=== PATIENT | female | born 1990 | race Caucasian/White ===

== ENCOUNTER 2020-08-06 19:10 | Inpatient (IN) | payer OTHER ==
[2020-08-06 19:32] VITALS: BMI 31.8
[2020-08-06] MEDS ORDERED: hydrALAZINE 20 MG/ML VIAL SLOW IVP PRN (22:17)
[2020-08-06] MEDS ORDERED: Zolpidem Tartrate 5 MG TAB PO PRN (22:17)
[2020-08-07 07:11] LABS: Hemoglobin 10.6 g/dL (12.0-15.5); Mean Corpuscular HGB CONC 31.4 g/dL (32.0-36.0); Mean Corpuscular Hemoglobin 28.1 pg (27.0-33.0); Mean Corpuscular Volume 89.7 fl (81.6-98.3); Platelet Count 243 10x3/uL (150-450); RBC Distribution Width 15.2 % (11.5-14.5); Red Blood Cell (RBC) Count 3.77 10x6/uL (3.90-5.03); White Blood Cell (WBC) Count 12.3 10x3/uL (3.5-10.5)
[2020-08-07 08:05] LABS: Syphilis Antibody Nonreactive (Nonreactive); Syphilis Antibody Index 0.03 S/CO (<1.00 Non-Reactive)
[2020-08-07 08:06] LABS: Hep B Surf Ag Non-Reactive S/CO (NonReactive)
[2020-08-07] MEDS ORDERED: Ondansetron PF 4 MG/2 ML Vial ONE (10:34)
[2020-08-07] MEDS ORDERED: NS w/ Oxytocin 30 units 500 ML ONE (12:07)
[2020-08-07] MEDS ORDERED: hydrALAZINE 20 MG/ML VIAL SLOW IVP PRN ×3 (13:14→18:16)
[2020-08-07] MEDS ORDERED: Promethazine HCl 25 MG/ML VIAL IM PRN ×2 (13:14→14:00)
[2020-08-07] MEDS ORDERED: Acetaminophen 500 MG TAB PO PRN (13:14)
[2020-08-07] MEDS ORDERED: Ondansetron PF 4 MG/2 ML Vial IVP PRN ×3 (13:14→18:16)
[2020-08-07] MEDS ORDERED: Misoprostol 200 MCG TAB PR PRN (13:16)
[2020-08-07] MEDS ORDERED: Lidocaine 1% (PF) 30 ML VIAL SC PRN (13:16)
[2020-08-07] MEDS ORDERED: NS / Oxytocin 40 units/1000ml 1,000 ML IV PRN (13:16)
[2020-08-07] MEDS ORDERED: Ibuprofen 800 MG TAB PO PRN (13:16)
[2020-08-07] MEDS ORDERED: HYDROcodone/Acetaminophen 5/325 mg Tablet PO PRN ×4 (13:16→18:16)
[2020-08-07] MEDS ORDERED: Fentanyl 4 mcg/Bup 0.1% Cadd 100 ML ONE (13:32)
[2020-08-07] MEDS ORDERED: Naloxone HCl 0.4 mg/ml Vial IVP PRN ×2 (14:00)
[2020-08-07] MEDS ORDERED: Communication Order-Pharmacy FS SCH (14:00)
[2020-08-07] MEDS ORDERED: ePHEDrine 50 MG/ML VIAL SLOW IVP PRN (14:00)
[2020-08-07] MEDS ORDERED: Acetaminophen 325 MG TAB PO PRN ×2 (14:00→18:18)
[2020-08-07] MEDS ORDERED: Eucerin (Mineral Oil/Petrolatum,White) 30 gm Jar TOP PRN (14:00)
[2020-08-07] MEDS ORDERED: Fentanyl 4 mcg/Bupivacaine 0.1% Cassette 100 ML EPIDURAL SCH (14:00)
[2020-08-07] MEDS ORDERED: diphenhydrAMINE 50 MG/ML VIAL IVP PRN (14:00)
[2020-08-07] MEDS ORDERED: Lactated Ringer's 500 ML IV PRN (14:00)
[2020-08-07] MEDS ORDERED: Cyclobenzaprine 10 MG TAB PO SCH (14:45)
[2020-08-07] MEDS ORDERED: Zolpidem Tartrate 5 MG TAB PO PRN (18:16)
[2020-08-07] MEDS ORDERED: Preparation H Ointment 28 GM TUBE PR PRN (18:16)
[2020-08-07] MEDS ORDERED: Milk Of Magnesia 30 ML UDCUP PO PRN (18:16)
[2020-08-07] MEDS ORDERED: Adacel (T-DAP) 0.5 ML SYRINGE IM ONE (18:16)
[2020-08-07] MEDS ORDERED: Misoprostol 200 MCG TAB VAG PRN (18:16)
[2020-08-07] MEDS ORDERED: Benzocaine-Menthol 82.5 ML CAN TOP PRN (18:16)
[2020-08-07] MEDS ORDERED: diphenhydrAMINE 25 MG CAP PO PRN (18:16)
[2020-08-07] MEDS ORDERED: Lanolin Ointment 7 GM TUBE TOP PRN (18:16)
[2020-08-07] MEDS ORDERED: Bisacodyl 10 MG SUPP PR PRN (18:16)
[2020-08-07] MEDS ORDERED: Witch Hazel-Glycerin 1 EACH JAR TOP PRN (18:18)
[2020-08-07] MEDS ORDERED: NS w/ Oxytocin 30 units 500 ML IVPB SCH ×2 (19:00→19:15)
[2020-08-07] MEDS ORDERED: NS w/ Oxytocin 30 units 500 ML IVPB PRN (19:00)
[2020-08-07] MEDS: Ibuprofen 800 MG TAB PO SCH ×3 (19:10→23:09)
[2020-08-07] MEDS ORDERED: Boostrix 0.5 ML (Tdap) VIAL IM ONE (19:15)
[2020-08-07 20:47] LABS: SARS-CoV-2 PCR by NAA Not Detected (NotDetected)
[2020-08-07] MEDS: Docusate Calcium (SURFAK) 240 MG CAP PO SCH (23:17)
[2020-08-08] MEDS: Ibuprofen 800 MG TAB PO SCH ×3 (05:30→22:02)
[2020-08-08 05:40] LABS: Hemoglobin 10.1 g/dL (12.0-15.5); Mean Corpuscular HGB CONC 30.9 g/dL (32.0-36.0); Mean Corpuscular Hemoglobin 28.2 pg (27.0-33.0); Mean Corpuscular Volume 91.3 fl (81.6-98.3); Mean Platelet Volume 10.6 fl (7.4-10.4); Platelet Count 236 10x3/uL (150-450); RBC Distribution Width 15.2 % (11.5-14.5); Red Blood Cell (RBC) Count 3.58 10x6/uL (3.90-5.03); White Blood Cell (WBC) Count 12.3 10x3/uL (3.5-10.5)
[2020-08-08] MEDS: Ferrous Sulfate 325 MG TAB PO SCH ×2 (07:31→17:32)
[2020-08-08] MEDS: Docusate Calcium (SURFAK) 240 MG CAP PO SCH ×2 (09:16→22:02)
[2020-08-09] MEDS: Ibuprofen 800 MG TAB PO SCH ×2 (06:51→13:19)
[2020-08-09] MEDS: Ferrous Sulfate 325 MG TAB PO SCH (07:29)
[2020-08-09] MEDS: Docusate Calcium (SURFAK) 240 MG CAP PO SCH (08:49)
[2020-08-09 08:54] VITALS: BP 118/69; TEMP 98.3
== END 2020-08-09 14:31 | disposition home or self-care (01) | DRG 807 ==
LOC: CSHLD/OP 19:10 → EEVIPCON 08-07 09:04 → CSHLD 08-07 09:04 → CSHPP 08-07 22:15
PROVIDERS: ADMIT Obstetrics & Gynecology; ATTEND Obstetrics & Gynecology
PROC: 10D07Z6 Extraction of Products of Conception, Vacuum, Via Natural or Artificial Opening (ICD-10-PCS; principal; 2020-08-07)
DX: O76 Abnormality in fetal heart rate and rhythm complicating labor and delivery (principal); Z37.0 Single live birth; Z3A.38 38 weeks gestation of pregnancy
CPT/HCPCS: 85027; 86780; 86850; 86900; 86901; 87340; 87635; J2590; U0003; U0005